=== PATIENT | female | born 1960 ===

== ENCOUNTER → 2018-08-29 | Emergency (ER) | payer OTHER ==
[~2018-08-29] VITALS: Ht 162.6 cm; Wt 94.8 kg
[~2018-08-29] MED LIST: ALPRAZOLAM0.5 MG; AMITRIPTYLINE H50 MG; CETIRIZINE HCL5 MG; COZAAR100 MG; FIBER LAX625 MG; ITCH RELIEF15 G1; LIPITOR20 MG; LYRICA300 MG; NEURONTIN800 MG; PREDNISONE10 MG; PROTONIX40 MG; PROVENTIL HFA6.7 GM; RESTORIL30 MG; SERTRALINE HCL100 MG; SINGULAIR10 MG PO; SUCRALFATE1 GM; TRAMADOL HCL50 MG
== END | disposition home or self-care (01) ==
LOC: ER 11:52
DX: K52.9 Noninfective gastroenteritis and colitis, unspecified (principal)

== ENCOUNTER 2021-04-03 10:33 | Emergency (ER) | payer OTHER ==
[~2021-04-03] VITALS: Ht 162.6 cm; Wt 98.4 kg
[2021-04-03] MEDS ORDERED: PREVACID15 M1 (11:18)
== END 2021-04-03 13:07 | disposition home or self-care (01) ==
LOC: ER 10:33
DX: R21 Rash and other nonspecific skin eruption (principal)